=== PATIENT | female | born 1955 | race Caucasian/White ===

== ENCOUNTER 2021-06-02 22:49 | Observation (INO) | payer MEDICARE, OTHER, SELFPAY ==
--- NOTE | ~2021-06-02 | CT_ITS ---
EXAMINATION: CT abdomen pelvis w con DATE: 06/03/2021 02:06 INDICATION: Hematochezia. Left lower quadrant pain. TECHNIQUE: Computed tomography (CT) of the abdomen and pelvis was performed with 100 cc Omnipaque 350 intravenous contrast. The dose-length product was 320.91 mGy-cm. Automated exposure control and iter ative reconstruction technique were employed. COMPARISON: CT dated 07/02/2017. FINDINGS: Lung bases are unremarkable. Heart size normal. There are postsurgical changes of gastric s leeve with small hiatal hernia. There is thickening of the distal esophagus. There is wall thickening of the rectum with subtle perianal soft tissue attenuation which could relat e to prolapse or proctitis. Recommend direct visualization. Gallbladder is not identified, likely surgically absent. There is mild prominence of the bile ducts. There is a small subcentimeter hypodensity of the spleen, likely benign. The pancreas, adrenal glands are unremarkable. There is mild bilateral renal atrophy. There is hepatic steatosis. Status post cho lecystectomy and hysterectomy. There is a subtle 6 mm hyperdense lesion of the left kidney at the low er pole which is unchanged from prior examination. Colonic diverticulosis without evidence for divert iculitis. IMPRESSION: 1. Mild wall thickening of the rectum with subtle perianal soft tissue attenuation. Consider prolapse or proctitis. Recommend direct correlation. 2: Mild distal esophageal wall thickening. Cannot exclude esophagitis. Reviewed, dictated and finalized at location A. IMPRESSION: 1. Mild wall thickening of the rectum with subtle perianal soft tissue attenuat ion. Consider prolapse or proctitis. Recommend direct correlation. 2: Mild distal esophageal wall thickening. Cannot exclude esophagitis.
[2021-06-02 22:53] VITALS: BP 157/87; PULSE 92; RESP 16; TEMP 36.6; O2SAT 98
[2021-06-02 23:23] LABS: Basophils Percent Auto 0.9 % (0.2-1.2); Eosinophils Absolute Auto 0.1 K/mm3 (0-0.3); Eosinophils Percent Auto 2.2 % (0-4.4); Hemoglobin 8.3 g/dL (12.0-15.0); Immature Granulocyte Absolute 0.01 K/mm3 (0.00-0.031); Immature Granulocyte Percent A 0.2 % (0-0.5); Lymphocytes Absolute Auto 1.26 K/mm3 (0.9-3.2); Lymphocytes Percent Auto 27.8 % (18.3-44.2); Mean Corpuscular HGB Conc 29.6 g/dl (32-36); Mean Corpuscular Hemoglobin 23.6 pg (26-34); Mean Corpuscular Volume 79.8 fl (80-100); Mean Platelet Volume 9.1 fl (7.4-10.4); Monocytes Absolute Auto 0.5 K/mm3 (0.1-0.6); Neutrophils Absolute Auto 2.6 K/mm3 (1.3-6.7); Neutrophils Percent Auto 57.9 % (45.5-73.1); Platelet Count Result 310 k/mm3 (150-375); Red Blood Count 3.51 M/mm3 (4.2-5.4); Red Cell Distribution Width 16.6 % (11.5-14.5); White Blood Count 4.5 K/mm3 (4.5-10.0)
[2021-06-02 23:32] LABS: Alanine Aminotransferase 10 U/L (4-35); Albumin Level 3.8 g/dL (3.5-5.1); Alkaline Phosphatase 83 U/L (38-126); Anion Gap 8 mmol/L (8-16); Aspartate Amino Transferase 14 U/L (14-36); Bilirubin,Total 0.3 mg/dL (0.2-1.3); Blood Urea Nitrogen 15 mg/dL (7-17); Calcium 9.3 mg/dL (8.4-10.2); Carbon Dioxide 24 mmol/L (22-30); Chloride 110 mmol/L (98-107); Estimated Glomerular Filt Rate > 60; Glucose 105 mg/dL (65-110); Potassium 3.6 mmol/L (3.4-5.0); Sodium 142 mmol/L (137-145)
[2021-06-02 23:43] LABS: INR 0.9; Prothrombin Time 12.2 Seconds (11.1-14.7)
[2021-06-02 23:44] LABS: Partial Thromboplastin Time 28.5 SECONDS (22.3-36.8)
[2021-06-03] VITALS (7 sets, daily range): BP systolic 137–156; BP diastolic 74–98; PULSE 69–84; RESP 18–20; TEMP 36.6–36.9; O2SAT 99–100; BMI 21.5
--- NOTE | 2021-06-03 00:04 | ED.GIBLEED ---
HPI - GI Bleed General Chief complaint: GI Bleed Stated complaint: gi bleed Time Seen by Provider: 06/02/21 23:52 Source: patient Mode of arrival: EMS Limitations: no limitations History of Present Illness HPI Narrative: Patient is a 65 year old female who presents by EMS with complaint of rectal bleeding x 3 today. She reports intermittent GI bleeding over the past 6 months. She reports bright red stools and abdominal cramping. Patient reports nausea without vomiting. She states Benadryl is what they usually give me for nausea . Patient reports a long list of allergies to medications. She denies taking over the counter medication for pain prior to arrival. Patient reports appointment with GI on 06/06 at [facility], patient reports she has not seen GI in the past. She denies all other complaints at this time. MD complaint: gross hematochezia Related Data Allergies Allergy/AdvReac Type Severity Reaction Status Date / Time ergotamine Allergy Severe Verified 07/01/17 23:16 chlorpromazine Allergy Mild Verified 07/01/17 23:16 divalproex sodium Allergy Mild Verified 07/01/17 23:16 droperidol Allergy Mild Verified 07/01/17 23:16 estrogens, conjugated Allergy Mild Verified 07/01/17 23:16 hydrochlorothiazide Allergy Mild Verified 07/01/17 23:16 ketorolac Allergy Mild Verified 07/01/17 23:16 levetiracetam Allergy Mild Verified 07/01/17 23:16 magnesium Allergy Mild Verified 07/01/17 23:16 methylprednisolone Allergy Mild Verified 07/01/17 23:16 metoclopramide Allergy Mild Verified 07/01/17 23:16 onabotulinumtoxinA Allergy Mild Verified 07/01/17 23:16 prednisone Allergy Mild Verified 07/01/17 23:16 prochlorperazine Allergy Mild Verified 07/01/17 23:16 sumatriptan Allergy Mild Verified 07/01/17 23:16 topiramate Allergy Mild Verified 07/01/17 23:16 zolpidem Allergy Mild Verified 07/01/17 23:16 zonisamide Allergy Mild Verified 07/01/17 23:16 carisoprodol Allergy Unknown CHEST PAIN Verified 07/01/17 23:16 dexamethasone Allergy Unknown Verified 07/01/17 23:16 haloperidol Allergy Unknown Verified 07/01/17 23:16 memantine Allergy Unknown Unverified 07/01/17 23:16 pantoprazole Allergy Unknown Unverified 07/01/17 23:16 sucralfate Allergy Unknown Unverified 07/01/17 23:16 Review of Systems Review of Systems: CONSTITUTIONAL: Denies fever, chills, or sweats. EYES: Denies visual changes, redness, or discharge. ENT: Denies rhinorrhea, congestion, sore throat, or otalgia. CARDIOVASCULAR: Denies chest pain, palpitations, or edema. RESPIRATORY: Denies cough or dyspnea. GASTROINTESTINAL: Reports abdominal pain, nausea and rectal bleeding starting today GENITOURINARY: Denies dysuria or hematuria. SKIN: Denies rash or itching. MUSCULOSKELETAL: Denies back pain, joint pain, or myalgia. NEUROLOGIC: Denies headache, numbness, dizziness, or weakness. PSYCHIATRIC: Denies anxiety or depression. [facility] Past Medical History Medical History (Updated 06/03/21 @ 01:29 by LAURIE Staton) Appendicitis Depression GERD (gastroesophageal reflux disease) HTN (hypertension) Hypercholesterolemia Hypothyroidism Migraines Opiate use Surgical History Surgical History (Updated 06/03/21 @ 00:13 by LAURIE Staton) H/O cardiac catheterization H/O tubal ligation History of repair of hiatal hernia History of total knee replacement Hx of cholecystectomy Hx of laparoscopic gastric banding Family History Family History (Updated 06/03/21 @ 00:13 by LAURIE Staton) Other Cerebrovascular accident Heart disease Hypertension Social History Social History (Updated 06/03/21 @ 00:13 by LAURIE Staton) Smoking status: Former smoker Alcohol intake: never Substance use: never Living arrangements: with family Gender identity (if verbalized by the patient): Female Comments At the time of signature, I have reviewed and agree with nursing past medical, surgical, social, and family history unless otherwise noted. Please see nursi
[2021-06-03] MEDS: MORPHINE SULFATE (*CRX) 4 MG/ML INJ IV PUSH ×4 (01:21→11:19)
--- NOTE | 2021-06-03 02:40 | PC.NURSE ---
This patient, Pamela Diamond, was admitted to 3 [facility] Surg Room 300-01. Patient/family oriented to hospital policies and general routines including ID bracelet, bed and alarms, visiting hours, pain management, procedures, bathroom and other care routines, personal items, smoking policy, room service/diet, and visiting hours. Information on how to activate the Rapid Response Team has been discussed. Patient/Family are encouraged to report perceived risks to care and to ask questions if they do not understand what they are told or what they should do.
[2021-06-03 06:39] LABS: Hematocrit 28.5 % (37.0-47.0); Hemoglobin 8.2 g/dL (12.0-15.0)
[2021-06-03 07:53] LABS: Hematocrit 29.1 % (37.0-47.0); Hemoglobin 8.3 g/dL (12.0-15.0); Mean Corpuscular HGB Conc 28.5 g/dl (32-36); Mean Corpuscular Hemoglobin 23.2 pg (26-34); Mean Corpuscular Volume 81.5 fl (80-100); Mean Platelet Volume 9.2 fl (7.4-10.4); Platelet Count Result 278 k/mm3 (150-375); Red Blood Count 3.57 M/mm3 (4.2-5.4); Red Cell Distribution Width 16.6 % (11.5-14.5); White Blood Count 4.6 K/mm3 (4.5-10.0)
[2021-06-03 08:01] LABS: Alanine Aminotransferase 8 U/L (4-35); Albumin Level 3.9 g/dL (3.5-5.1); Alkaline Phosphatase 74 U/L (38-126); Anion Gap 7 mmol/L (8-16); Aspartate Amino Transferase 15 U/L (14-36); Bilirubin,Total 0.3 mg/dL (0.2-1.3); Blood Urea Nitrogen 12 mg/dL (7-17); Calcium 9.1 mg/dL (8.4-10.2); Carbon Dioxide 26 mmol/L (22-30); Chloride 108 mmol/L (98-107); Estimated CRCL calculation 65 ml/min; Estimated Glomerular Filt Rate > 60; Glucose 82 mg/dL (65-110); Potassium 3.5 mmol/L (3.4-5.0); Sodium 141 mmol/L (137-145)
[2021-06-03 08:31] LABS: Glucose Point of Care 83 mg/dl (65-105)
[2021-06-03] MEDS: diphenhydrAMINE HCl INJ 50 MG/ML VIAL 25 MG IV PUSH ×4 (10:04→23:09)
--- NOTE | 2021-06-03 11:08 | PM.IMHP ---
H&P: HPI History of Present Illness Date/Time: 06/03/21 08:00 Chief Complaint: abdominal pain Narrative: Ms. Diamond is a 65-year-old female with a past medical history of hypertension, CAD, GERD, diabetes mellitus, and gastric sleeve surgery who presented the ED on 06/02/2021 for evaluation abdominal pain accompanied with melena, hematochezia, hematemesis. Patient stated this all started yesterday when she started getting abdominal pain that was sharp and throbbing in nature. She noticed that she was having rectal bleeding nausea and that her stool was coming out with bright red blood on it and is loose in consistency. Patient stated that she has had this before and that she is supposed to see Dr. Smalls in [place] for evaluation on June 06. Patient also stated that she had 6 or more episodes of emesis with blood in it. She also stated that her pain is in her lower abdomen and her rectum. Patient stated that she has a gastric band placed at 1 time which then was removed due to gastric prolapsing and replaced with a gastric sleeve. Which she got 2 years ago. Patient denies chest pain, shortness of breath, sweats, chills, fevers, headaches, vision difficulties, weakness, fatigue, numbness and tingling, syncope, falls, urinary dysfunction, constipation, diarrhea. It is noted that Ms. Diamond has roughly 25 allergies. It is noted in her history that she has had issues with opiate use in the past. Currently she has been prescribed morphine IV 4 mg Q2hr per ED and is requesting IV Benadryl for control of her nausea. I did address some of these allergies with the patient such as the divalproex sodium and the Keppra which she stated she was given those to help with her migraines. When asked about verification of these allergies she said that she has chest pain and breathing problems any angioedema with most medications. I did allow her to have some IV Benadryl however I explained her that she would not be able to keep that very long and that I was having GI to come and evaluate her. Patient has been admited to the medical floor under observation Review of Systems Review of Systems: All systems reviewed & are unremarkable except as noted in HPI and below PMFSH Past Medical History Medical History Abnormal CT scan, esophagus Anemia Appendicitis Depression Diabetes 1.5, managed as type 2 GERD (gastroesophageal reflux disease) HTN (hypertension) Hypercholesterolemia Hypothyroidism Migraines Opiate use Surgical History Surgical History H/O cardiac catheterization H/O tubal ligation History of gastric surgery History of repair of hiatal hernia History of total knee replacement Hx of cholecystectomy Hx of laparoscopic gastric banding Family History Family History (Updated 06/03/21 @ 11:23 by NATE Uagrte) Father Cerebrovascular accident Heart disease Hypertension Acute myocardial infarction Malignant neoplasm of prostate Mother Heart disease Hypertension Hypothyroid CHF (congestive heart failure) Grandparent Diabetes mellitus paternal grandfather Social History Social History (Updated 06/03/21 @ 11:24 by NATE Ugarte) Social History: Patient lives at home with her family including her Sher grace 48 years, her daughter with her , her mother. She also states that she has 11 cats and 2 dogs she also wishes to be a full code and her Sher be her surrogate if needed. Smoking status: Never smoker Second hand tobacco smoke exposure: No Alcohol intake: never Substance use: never Living arrangements: with family Occupation/Education: unemployed Gender identity (if verbalized by the patient): Female Sexual Orientation (if Verbalized by the Patient): Straight or Heterosexual Spiritual care concerns: Yes (confucianism) Agree to blood products: Yes
[2021-06-03] MEDS: SODIUM CHLORIDE 0.9% IV 1,000 ML 125 ML IV CONT ×2 (11:19→19:32)
[2021-06-03] MEDS: MORPHINE SULFATE (*CRX) 4 MG/ML INJ 2 MG IV PUSH ×3 (14:18→23:10)
--- NOTE | 2021-06-03 16:00 | WPDGICN ---
Assessment and Plan Assessment and plan (1) GI bleed: Code(s): K92.2 - Gastrointestinal hemorrhage, unspecified Status: Acute Assessment and Plan: had rectal bleeding but also coffee ground emesis hb low but stable since admission will assess with egd and colonoscopy (CT scan showed possible esophagitis but also proctitis) (2) Rectal bleeding: Code(s): K62.5 - Hemorrhage of anus and rectum Status: Acute Assessment and Plan: monitor and trend hb (3) Anemia: Code(s): D64.9 - Anemia, unspecified Status: Acute Assessment and Plan: low hb but stable, we do not have baseline cbc in records scopes tomorrow (4) Abnormal CT scan, esophagus: Code(s): R93.3 - Abnormal findings on diagnostic imaging of other parts of digestive tract Status: Acute Assessment and Plan: on pepcid, she says that has allergy to ppi (5) Opiate addiction: Code(s): F11.20 - Opioid dependence, uncomplicated Status: Acute (6) Hx of laparoscopic gastric banding: Code(s): Z98.84 - Bariatric surgery status Status: Inactive GI Consult Note Consult date/time: 06/03/21 16:00 Reason for consult: rectal bleeding HPI: Pamela Diamond is a 65 year old female with history of hypertension, CAD, GERD, diabetes mellitus, and gastric sleeve about 2 years ago (used to have lap band but removed) admitted to hospital with lower abdominal pain and several bowel movements with bright red blood. She says that for last 6 months has noted small amount of blood in stool probably every 2-3 weeks or so but day before admission with lower abdominal pain that was sharp and throbbing in nature then had bright red blood, pain caused nausea with coffee ground emesis. She had colonoscopy more than [address] scan a/p reviewed, mild wall thickening of the rectum with subtle perianal soft tissue attenuation, either prolapse or proctitis, mild distal esophageal wall thickening. Cannot exclude esophagitis. She also had anemia with hb 8.3 and admitted to hospital. She has multiple allergies including ppi, only using pepcid at home. Noted in medical records that she has opiate addiction. Review of Systems Constitutional: Constitutional: Denies chills Eyes: Eyes: Denies blurry vision ENT: Reports Normal hearing present Cardiovascular: Cardiovascular: Denies chest pain Respiratory: Respiratory: Denies dyspnea Gastrointestinal: Gastrointestinal: Reports abdominal pain, Reports hematochezia, Reports nausea and Reports vomiting Genitourinary: Genitourinary: Denies flank pain Musculoskeletal: Musculoskeletal: Denies neck pain Integumentary/Breasts: Skin/Breast: Reports dry skin Neurologic: Denies numbness Psychiatric: Psychiatric: Denies confusion [facility] Past Medical History Medical History (Updated 06/03/21 @ 16:07 by Alexei Saeed MD) Abnormal CT scan, esophagus Anemia Appendicitis Depression Diabetes 1.5, managed as type 2 GERD (gastroesophageal reflux disease) HTN (hypertension) Hypercholesterolemia Hypothyroidism Migraines Opiate use Surgical History Surgical History (Updated 06/03/21 @ 16:06 by Alexei Saeed MD) H/O cardiac catheterization H/O tubal ligation History of gastric surgery History of repair of hiatal hernia History of total knee replacement Hx of cholecystectomy Hx of laparoscopic gastric banding Family History Family History (Updated 06/03/21 @ 11:23 by NATE Ugarte) Father Cerebrovascular accident Heart disease Hypertension Acute myocardial infarction Malignant neoplasm of prostate Mother Heart disease Hypertension Hypothyroid CHF (congestive heart failure) Grandparent Diabetes mellitus paternal grandfather Social History Social History (Updated 06/03/21 @ 11:24 by NATE Ugarte) Social History: Patient lives at home with her family including her Sher wilson
[2021-06-03 16:46] LABS: Hematocrit 29.4 % (37.0-47.0); Hemoglobin 8.2 g/dL (12.0-15.0)
[2021-06-03] MEDS: BISACODYL 5 MG TABLET EC 20 MG PO (17:29)
[2021-06-03] MEDS: polyethylene glycoL 3350 238 GM BOTTLE PO (17:33)
[2021-06-03 20:54] LABS: IFOB Positive Control Positive; Immunochemical Fecal Occult Bl Positive (N)
[2021-06-04] VITALS (7 sets, daily range): BP systolic 82–159; BP diastolic 46–77; PULSE 62–74; RESP 16–20; TEMP 36.3–37.5; O2SAT 98–100
[2021-06-04] MEDS: MAGNESIUM CITRATE 300 ML BTL PO (02:54)
[2021-06-04] MEDS: diphenhydrAMINE HCl INJ 50 MG/ML VIAL 25 MG IV PUSH ×3 (03:04→13:58)
[2021-06-04] MEDS: MORPHINE SULFATE (*CRX) 4 MG/ML INJ 2 MG IV PUSH ×2 (03:05→09:47)
[2021-06-04] MEDS: SODIUM CHLORIDE 0.9% IV 1,000 ML 125 ML IV CONT (03:11)
--- NOTE | 2021-06-04 07:20 | PC.NURSE ---
To GI Lab per rubio at 0720, IV saline locked per MELISA Devries. Report given to MELISA Devries from shift supervisor melting RNCamila.
[2021-06-04] MEDS: LACTATED RINGERS 1,000 ML 150 ML IV CONT (07:40)
--- NOTE | 2021-06-04 07:47 | WPDANESEPP ---
Anes - Eval Pre Procedure Procedure: Operation Date: 06/04/21 08:00 Proposed Procedures p Esophagogastroduodenoscopy & Colonoscopy - Alexei Saeed MD Date/Time: 06/04/21 07:47 Pre Op Diagnosis: Rectal Bleeding Patient Data Age: 65 Gender: F Height: 1.78 m Weight: 68.2 kg Last Vital Signs Temp 36.3 C L 06/04/21 07:33 Pulse 62 06/04/21 07:33 Resp 20 06/04/21 07:33 BP 159/77 H 06/04/21 07:33 Pulse Ox 100 06/04/21 07:33 Allergies Allergy/AdvReac Type Severity Reaction Status Date / Time acetaminophen [From Tylenol] Allergy Severe Difficulty Verified 06/03/21 03:09 Breathing dicyclomine [From Bentyl] Allergy Severe Difficulty Verified 06/03/21 03:09 Breathing ergotamine Allergy Severe Anaphylactic Verified 06/03/21 03:09 Shock fentanyl Allergy Severe Difficulty Verified 06/03/21 03:09 Breathing ondansetron [From Zofran] Allergy Severe Difficulty Verified 06/03/21 03:09 Breathing sucralfate Allergy Severe Difficulty Verified 06/03/21 03:09 Breathing chlorpromazine Allergy Mild Anaphylactic Verified 06/03/21 03:09 Shock divalproex sodium Allergy Mild Anaphylactic Verified 06/03/21 03:09 Shock droperidol Allergy Mild Anaphylactic Verified 06/03/21 03:09 Shock estrogens, conjugated Allergy Mild Anaphylactic Verified 06/03/21 03:09 Shock hydrochlorothiazide Allergy Mild Anaphylactic Verified 06/03/21 03:09 Shock ketorolac Allergy Mild Anaphylactic Verified 06/03/21 03:09 Shock levetiracetam Allergy Mild Anaphylactic Verified 06/03/21 03:09 Shock magnesium Allergy Mild Anaphylactic Verified 06/03/21 03:09 Shock methylprednisolone Allergy Mild Anaphylactic Verified 06/03/21 03:09 Shock metoclopramide Allergy Mild Anaphylactic Verified 06/03/21 03:09 Shock onabotulinumtoxinA Allergy Mild Anaphylactic Verified 06/03/21 03:09 Shock prednisone Allergy Mild Anaphylactic Verified 06/03/21 03:09 Shock prochlorperazine Allergy Mild Anaphylactic Verified 06/03/21 03:09 Shock sumatriptan Allergy Mild Anaphylactic Verified 06/03/21 03:09 Shock topiramate Allergy Mild Anaphylactic Verified 06/03/21 03:09 Shock zolpidem Allergy Mild Anaphylactic Verified 06/03/21 03:09 Shock zonisamide Allergy Mild Anaphylactic Verified 06/03/21 03:09 Shock carisoprodol Allergy Unknown CHEST PAIN Verified 07/01/17 23:16 dexamethasone Allergy Unknown Difficulty Verified 06/03/21 03:09 Breathing haloperidol Allergy Unknown Difficulty Verified 06/03/21 03:09 Breathing memantine Allergy Unknown Difficulty Verified 06/03/21 03:09 Breathing pantoprazole Allergy Unknown Difficulty Verified 06/03/21 03:09 Breathing Home Medications Medication Instructions Recorded Confirmed Type atorvastatin 1 mg PO DAILY 06/03/21 06/03/21 History carvedilol 1 mg PO DAILY 06/03/21 06/03/21 History citalopram 1 mg PO DAILY 06/03/21 06/03/21 History famotidine 1 mg PO DAILY 06/03/21 06/03/21 History levothyroxine 1 mcg PO DAILY 06/03/21 06/03/21 History lisinopril 1 mg PO DAILY 06/03/21 06/03/21 History Laboratory Tests 06/03/21 06/03/21 06/03/21 07:32 07:32 07:32 WBC 4.6 K/mm3 K/mm3 (4.5-10.0) RBC 3.57 M/mm3 L M/mm3 (4.2-5.4) Hgb Cancelled 8.3 g/dL L g/dL (12.0-15.0) Hct Cancelled 29.1 % L % (37.0-47.0) MCV 81.5 fl fl (80-100) MCH 23.2 pg L pg (26-34) MCHC 28.5 g/dl L g/dl (32-36) RDW 16.6 % H % (11.5-14.5) Plt Count 278 k/mm3 k/mm3 (150-375) MPV 9.2 fl fl (7.4-10.4) Sodium 141 mmol/L mmol/L (137-145) Potassium 3.5 mmol/L mmol/L (3.4-5.0) Chloride 108 mmol/L H mmol/L (98-107) Carbon Dioxide 26 mmol/L mmol/L (22-30) Anion Gap 7 mmol/L L mmol/L (8-16) BUN 12 mg/dL mg/dL (7-17) Creatinine 0.80 mg/dL mg/
--- NOTE | 2021-06-04 08:05 | WPDANESEFPP ---
Anes - Eval Final PreProcedure Day of Procedure 06/04/21 08:05 Patient weight: normal Heart: regular rate and rhythm Lungs: clear to auscultation and normal air movement Airway: Mallampati scale class II Neurological: alert and oriented Last oral intake: >/= 8 hours ASA classification: III Emergent: yes Anesthetic plan: proceed Anesthesia type and monitoring: general GIVS and standard monitoring Informed Consent: The patient's anesthetic plan and its attendant risks and benefits were discussed with the patient/family/POA. Questions were solicited and answers provided to the satisfaction of the patient/family/POA.
--- NOTE | 2021-06-04 08:33 | SUR.OPER ---
EGD START 803, END 807 COLONOSCOPY START 814, END 824
[2021-06-04] MEDS: FAMOTIDINE 10 MG TABLET PO (10:50)
--- NOTE | 2021-06-04 12:19 | P.DS_ITS ---
DS: Admitting Diagnosis Admitting Diagnosis GI bleed DS: Discharge Diagnosis Discharge Diagnosis (1) GI bleed: Code(s): K92.2 - Gastrointestinal hemorrhage, unspecified Status: Acute Assessment and Plan: * patient complained of loose stools with bright red blood and him at emesis * Seems to be controlled since admission * hemoglobin hematocrit are both stable at 8.2 and 29.4 * GI consult thank you for your recommendations * IV morphine for pain control and IV Benadryl for nausea * Tolerating regular diet * occult blood ordered positive * abdominal CT shows mild wall thickening of the rectum consider prolapse or proctitis, mild distal esophageal wall thickening that could be esophagitis * labs in a.m. * trend hemoglobin and hematocrit EGD:Hiatal hernia, Reflux Esophagitis, Gastritis Colonoscopy: Diverticulosis without perforation or abscess without bleeding, UC proctitis without complication, internal hemorrhoids. (2) Diabetes 1.5, managed as type 2: Code(s): E13.9 - Other specified diabetes mellitus without complications Status: Acute Assessment and Plan: * Accu-Cheks q.6 * diabetic carb consistent diet when able to eat * seems to be diet controlled is patient is not on any home meds * will initiate sliding scale * hypoglycemia protocol * current glucose is 82 * trend labs * labs in a.m. (3) Hypothyroidism: Code(s): E03.9 - Hypothyroidism, unspecified Status: Inactive Assessment and Plan: * continue patient's home levothyroxine 150 mcg daily when able to eat (4) GERD (gastroesophageal reflux disease): Code(s): K21.9 - Gastro-esophageal reflux disease without esophagitis Status: Inactive Assessment and Plan: * continue patient's home famotidine 20 mg daily when able to eat (5) HTN (hypertension): Code(s): I10 - Essential (primary) hypertension Status: Inactive Assessment and Plan: * current blood pressure is 149/97 * continue home carvedilol 6.25 b.i.d., lisinopril 10 mg p.o. daily when able to take p.o. * trend blood pressures * hydralazine 10 mg IV Q4 with parameters p.r.n. * adjust medications as needed (6) Depression: Code(s): F32.9 - Major depressive disorder, single episode, unspecified Status: Acute Assessment and Plan: * continue patient's home citalopram 10 mg daily when able to eat (7) Opiate addiction: Code(s): F11.20 - Opioid dependence, uncomplicated Status: Acute Assessment and Plan: * it is been noted that patient has gotten pain medication prescribed by many different facilities * prescription history for just 2020 * [place] was filled on 05/26, 01/27 total of 17 pills * 10mg oxycodone was prescribed 04/26, 04/13, 03/22, 11/29 total of 53 pills * 50 mg tramadol was prescribed 02/21, 02/10 a total of 30 pills * 2 mg Dilaudid prescribed 12/05, 12/14, 12/28, 01/17 total of 52 pills * oxycodone immediate release prescribed 05/21, 03/03, 02/17, 02/05, 01/22, 12/22 total of 80 pills * patient has been to [facility], [facility], [facility], [facility] all within the year Talked to the patient about finding a immigration patrol inspector and talking to them about finding a pain clinic to help manage her pain better. DS: Summary Hospital Course Hospital Course: date of service is 06/04/2021 at 11:15 a.m. Ms. Diamond is a 65-yea
--- NOTE | 2021-06-04 12:19 | PM.DS ---
DS: Admitting Diagnosis Admitting Diagnosis GI bleed DS: Discharge Diagnosis Discharge Diagnosis (1) GI bleed: Code(s): K92.2 - Gastrointestinal hemorrhage, unspecified Status: Acute Assessment and Plan: patient complained of loose stools with bright red blood and him at emesis Seems to be controlled since admission hemoglobin hematocrit are both stable at 8.2 and 29.4 GI consult thank you for your recommendations IV morphine for pain control and IV Benadryl for nausea Tolerating regular diet occult blood ordered positive abdominal CT shows mild wall thickening of the rectum consider prolapse or proctitis, mild distal esophageal wall thickening that could be esophagitis labs in a.m. 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 (2) Diabetes 1.5, managed as type 2: Code(s): E13.9 - Other specified diabetes mellitus without complications Status: Acute Assessment and Plan: Accu-Cheks q.6 diabetic carb consistent diet when able to eat seems to be diet controlled is patient is not on any home meds will initiate sliding scale hypoglycemia protocol current glucose is 82 trend labs labs in a.m. (3) Hypothyroidism: Code(s): E03.9 - Hypothyroidism, unspecified Status: Inactive Assessment and Plan: continue patient's home levothyroxine 150 mcg daily when able to eat (4) GERD (gastroesophageal reflux disease): Code(s): K21.9 - Gastro-esophageal reflux disease without esophagitis Status: Inactive Assessment and Plan: continue patient's home famotidine 20 mg daily when able to eat (5) HTN (hypertension): Code(s): I10 - Essential (primary) hypertension Status: Inactive Assessment and Plan: current blood pressure is 149/97 continue home carvedilol 6.25 b.i.d., lisinopril 10 mg p.o. daily when able to take p.o. trend blood pressures hydralazine 10 mg IV Q4 with parameters p.r.n. adjust medications as needed (6) Depression: Code(s): F32.9 - Major depressive disorder, single episode, unspecified Status: Acute Assessment and Plan: continue patient's home citalopram 10 mg daily when able to eat (7) Opiate addiction: Code(s): F11.20 - Opioid dependence, uncomplicated Status: Acute Assessment and Plan: it is been noted that patient has gotten pain medication prescribed by many different facilities prescription history for just 2020 [facility] was filled on 05/26, 01/27 total of 17 pills 10mg oxycodone was prescribed 04/26, 04/13, 03/22, 11/29 total of 53 pills 50 mg tramadol was prescribed 02/21, 02/10 a total of 30 pills 2 mg Dilaudid prescribed 12/05, 12/14, 12/28, 01/17 total of 52 pills oxycodone immediate release prescribed 05/21, 03/03, 02/17, 02/05, 01/22, 12/22 total of 80 pills patient has been to [facility], [facility], [facility], [facility] all within the year Talked to the patient about finding a dog races manager and talking to them about finding a pain clinic to help manage her pain better. DS: Summary Hospital Course Hospital Course: date of service is 06/04/2021 at 11:15 a.m. Ms. Diamond is a 65-year-old female with a past medical history of hypertension, CAD, GERD, diabetes mellitus, and gastric sleeve surgery who presented the ED on 06/02/2021 for evaluation abdominal pain accompanied with melena, hematochezia, hematemesis. labs upon admission to hospital what showed a white count of 4.5 an H&H of 8.3/28.0 sodium 142 potassium of 3.6 a BUN and creatinine of 15/0.8. Vital signs also remained stable temperature of 36.6 degree C a heart rate of 90 to a respiratory rate of 16 and a blood pressure of 1
== END 2021-06-04 16:15 | disposition home or self-care (01) ==
LOC: ANHED 06-03 01:29 → ANH3MEDSUR 06-03 10:41
PROVIDERS: Emergency Medicine; Internal Medicine Gastroenterology; Nurse Practitioner; Admitting Provider Internal Medicine; Emergency Provider Nurse Practitioner; Visit Provider Internal Medicine Critical Care Medicine
PROC: 0DJ08ZZ Inspection of Upper Intestinal Tract, Via Natural or Artificial Opening Endoscopic (ICD-10-PCS; CPT 43235; principal; 2021-06-04 08:00)
DX: K57.30 Diverticulosis of large intestine without perforation or abscess without bleeding (principal); K51.20 Ulcerative (chronic) proctitis without complications; K29.70 Gastritis, unspecified, without bleeding; K44.9 Diaphragmatic hernia without obstruction or gangrene; K20.90 Esophagitis, unspecified without bleeding; K64.8 Other hemorrhoids; I25.10 Atherosclerotic heart disease of native coronary artery without angina pectoris; I10 Essential (primary) hypertension; K21.9 Gastro-esophageal reflux disease without esophagitis; E11.9 Type 2 diabetes mellitus without complications; Z98.84 Bariatric surgery status; E03.9 Hypothyroidism, unspecified; F32.9 Major depressive disorder, single episode, unspecified; F11.20 Opioid dependence, uncomplicated; K62.5 Hemorrhage of anus and rectum; D64.9 Anemia, unspecified
CPT/HCPCS: 43239; 45380; 36415; 74177; 80053; 82274; 82948; 85014; 85018; 85025; 85027; 85610; 85730; 86850; 86900; 86901; 88305; 88312; 96361; 96374; 96375; 96376; 99285; A9270; G0378; J0171; J1200; J2270; J2704; J7030; J7120; Q9967